=== PATIENT | male | born 1985 | race Hispanic/Latino ===

== ENCOUNTER 2018-02-15 00:43 | Emergency (ER) | payer BC ==
[2018-02-15] MEDS ORDERED: Lidocaine 1% w Epi 1:100,000 Inj ONE (01:04)
[2018-02-15 01:06] VITALS: BP 120/68; PULSE 87; RESP 18; O2SAT 96
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
--- NOTE | 2018-02-17 05:40 | OP ---
PROCEDURE DATE: 02/15/2018 SURGEON: Laurel Zuniga MD PREOPERATIVE DIAGNOSIS: A 2.7 cm right upper lateral lip laceration across the vermilion border. POSTOPERATIVE DIAGNOSIS: A 2.7 cm right upper lateral lip laceration across the vermilion border. PROCEDURE PERFORMED: Complex repair of 2.7 cm right lateral upper lip laceration across the vermilion border. TYPE OF ANESTHESIA: Regional, right infraorbital nerve block. INDICATIONS FOR PROCEDURE: As follows: Please refer to my separately dictated ER consultation per history and physical. DESCRIPTION OF PROCEDURE: As follows. A 1% lidocaine was used in the right infraorbital nerve block. After allowing sufficient time for the anesthetic to take effect, the wound was thoroughly irrigated with normal saline. Any retained debris was manually removed. The area was prepped and draped in the usual clean and sterile manner. I started the operation by debriding irregular mucosal edges with scissors technique. I undermined it to take the tension of the wound. I used a 5-0 Monocryl to line up and approximate the orbicularis rosa muscle in an interrupted fashion. I used a 5-0 Monocryl to line up and approximate the submucosal and deep dermal tissues in interrupted fashion. For the vermilion border, a 6-0 Prolene suture was used as well as for the epidermis of the philtrum, and then, I used a 4-0 chromic in interrupted fashion to close the remainder of the 2.7 cm right upper lip laceration mucosal lining. After doing this, the wound edges were nicely aligned. The patient tolerated the procedure well. Postop wound care, limitation of physical activities, and the fact there will be a scar, the prognosis of which is unknown were discussed with the patient, and the stitches needing to be removed in 5 to 7 days were discussed, and all questions were answered. Laurel Zuniga MD
== END 2018-02-15 02:32 ==
LOC: H.ER 00:43
DX: S01.511A Laceration without foreign body of lip, initial encounter (principal); Y04.0XXA Assault by unarmed brawl or fight, initial encounter; Y92.89 Other specified places as the place of occurrence of the external cause